=== PATIENT | female | born 1950 | race African-American/Black ===

== ENCOUNTER 2017-11-22 08:26 | Emergency (ER) | payer MEDICARE ==
[~2017-11-22] VITALS: Ht 180.3 cm; Wt 129.0 kg
[~2017-11-22 08:26] MED LIST: AMOXICILLIN/CL875 MG PO; ATENOLOL50 MG PO; BACLOFEN10 MG PO; BACTRIM DS1 TAB PO; CIPROFLOXACN500 MG PO; FLONASE NASAL50 MCG; FLUZONE SPLT1 M1 IM; HYDROCHLOROT12.5 MG PO; LOSARTAN POT50 MG PO; LOVASTATIN10 M1 PO; MELOXICAM15 MG PO; MELOXICAM7.5 MG PO; MULTIVITAM10 OR; MULTIVITAMIN PO; NABUMETONE750 MG PO; NAPROSYN500 MG PO; OMEPRAZOLE20 MG PO; PNEUMOVAX 23 IM; PRAVASTATIN SOD10 MG PO; PREVACID30 M2 PO; SULINDAC200 MG PO; TENIVAC1 ML IM; TESSALON200 MG PO; TOBRAMYCIN0.3 % OS; ULTRAM50 M1 OR; VITAMIN B 6100 MG OR; VITAMIN D400 UNI1 PO; VITAMIN D400 UNI2 OR; XYZAL5 MG PO; ZITHROMAX250 MG OR; ZYRTEC10 MG PO
[2017-11-22] MEDS ORDERED: GABAPENTIN300 M2 PO (09:01)
[2017-11-22] MEDS ORDERED: LAMISIL AT1 % EX (09:01)
[2017-11-22 09:24] VITALS: BP 133/79
== END 2017-11-22 09:24 | disposition home or self-care (01) ==
LOC: ED 08:26
DX: B35.1 Tinea unguium (principal); G62.9 Polyneuropathy, unspecified

== ENCOUNTER 2019-01-10 16:13 | Emergency (ER) | payer MEDICARE ==
[~2019-01-10] VITALS: Ht 180.3 cm; Wt 112.0 kg
[~2019-01-10 16:13] MED LIST changes: +GABAPENTIN300 M2 PO; +LAMISIL AT1 % EX
[2019-01-10 17:05] LABS: HEMATOCRIT 40.2 % (37.0-47.0); HEMOGLOBIN 13.1 g/dl (12.0-16.0); IMMATURE GRANULOCYTES 0.4 % (0.0-5.0); MEAN CORPUSCULAR HGB 29.6 pG CALC (26.0-32.0); MEAN CORPUSCULAR HGB CONC 32.6 g/L CALC (32.0-36.0); NEUT# 4.34 thou/uL (2.00-7.15); RED BLOOD COUNT 4.42 mill/uL (4.20-5.60); RED CELL DISTRI WIDTH 14.6 % (11.5-15.5)
[2019-01-10 17:19] LABS: ALKALINE PHOSPHATASE 83 u/l (38-126); ANION GAP 15 (6-22 (CALC)); BILIRUBIN, TOTAL 0.5 mg/dL (0.0-1.4); BUN 15 mg/dL (8-23); BUN/CREATININE RATIO 16 (12-20 (CALC)); CARBON DIOXIDE 24 mmol/l (22-30); CHLORIDE 108 mmol/l (95-108); CREATININE 0.9 mg/dL (0.5-1.0); GFR > 60 ML/MIN (>=60 (CALC)); GFR FOR AFR.AMER. > 60 ML/MIN (>=60 (CALC)); POTASSIUM 4.4 mmol/l (3.5-5.1); SGOT/AST 28 u/l (9-36); SODIUM 142 mmol/l (137-146); TOTAL PROTEIN 7.6 g/dL (6.3-8.2)
[2019-01-10 17:20] LABS: ALBUMIN 4.4 g/dL (3.2-5.0)
[2019-01-10] MEDS ORDERED: ULTRAM50 M1 PO (18:15)
[2019-01-10] MEDS ORDERED: FLEXERIL PO (18:15)
[2019-01-10 18:25] VITALS: BP 164/81
== END 2019-01-10 18:49 | disposition home or self-care (01) ==
LOC: ED 16:13
PROVIDERS: Emergency Medicine
DX: S13.9XXA Sprain of joints and ligaments of unspecified parts of neck, initial encounter (principal); I10 Essential (primary) hypertension; X58.XXXA Exposure to other specified factors, initial encounter

== ENCOUNTER 2022-03-01 19:46 | Emergency (ER) | payer MEDICARE ==
[~2022-03-01] VITALS: Ht 180.3 cm; Wt 120.6 kg
[2022-03-01] VITALS (9 sets, daily range): BP systolic 116–202; BP diastolic 65–127
[~2022-03-01 19:46] MED LIST changes: +FLEXERIL PO; +ULTRAM50 M1 PO
[2022-03-01] MEDS ORDERED: AMLODIPINE BESYL5 MG PO (20:39)
[2022-03-01] MEDS ORDERED: APRESOLINE50 MG PO (20:40)
[2022-03-01] MEDS ORDERED: ATENOLOL25 MG PO (20:40)
== END 2022-03-01 22:00 | disposition home or self-care (01) ==
LOC: ED 19:46
DX: S52.501A Unspecified fracture of the lower end of right radius, initial encounter for closed fracture (principal); S00.81XA Abrasion of other part of head, initial encounter; S20.211A Contusion of right front wall of thorax, initial encounter; S00.83XA Contusion of other part of head, initial encounter; I10 Essential (primary) hypertension; W01.0XXA Fall on same level from slipping, tripping and stumbling without subsequent striking against object, initial encounter; Y92.009 Unspecified place in unspecified non-institutional (private) residence as the place of occurrence of the external cause